=== PATIENT | male | born 1955 | race Caucasian/White ===

== ENCOUNTER 2023-08-19 06:27 | Day surgery (SDC) | payer OTHER, SELFPAY ==
[2023-08-15 13:42] VITALS: BMI 32.6
--- NOTE | 2023-08-16 09:27 | HO.ANESPROP2 ---
Documented by User: Loree Ludwig NP 08/16/23 09:27 HPI - Anesthesia Eval Consult details Narrative: 67yo M for Colonoscopy [facility] Past Medical History Medical History Tubular adenoma Surgical History Surgical History Hx of knee surgery H/O colonoscopy Social History Social History Household Members: Spouse Patient Tobacco Use Status: Never used Tobacco Use of substances other than those prescribed or required for medical reasons: No Are you DNR?: No Advance Directives: No Advance Directives Information Provided: Yes Meds Allergies Allergy/AdvReac Type Severity Reaction Status Date / Time sodium pentathol Allergy Unknown Unknown Uncoded 08/19/23 06:48 Home Medications Medication Instructions Recorded Confirmed Last Taken Type multivitamin 1 tab PO DAILY 08/15/23 08/15/23 Unknown History Exam Height,Weight and Vital Signs: Height 5 ft 9.5 in Weight 101.605 kg Assessment and Plan Assessment Anesthesia Assessment: Chart Reviewed Documented by User: Yara Jimenez MD 08/19/23 07:29 [facility] Past Medical History Medical History Tubular adenoma Family History Family history of problems with anesthesia: No Surgical History Surgical History Hx of knee surgery H/O colonoscopy History of Problems with Anesthesia: No Social History Social History Household Members: Spouse Patient Tobacco Use Status: Never used Tobacco Use of substances other than those prescribed or required for medical reasons: No Are you DNR?: No Advance Directives: No Advance Directives Information Provided: Yes Meds Allergies Allergy/AdvReac Type Severity Reaction Status Date / Time sodium pentathol Allergy Unknown Unknown Uncoded 08/19/23 06:48 Home Medications Medication Instructions Recorded Confirmed Last Taken Type multivitamin 1 tab PO DAILY 08/15/23 08/15/23 Unknown History Exam Airway Mallampati Class: II TM Dist: >3cm Neck ROM: Limited Heart: rrr Lungs: cta Assessment and Plan Assessment Anesthesia Assessment: Anesthesia Plan Discussed Final Anesthetic Review Family History of Problems with Anesthesia: No History of Problems with Anesthesia: No NPO: Yes ASA Class: I Final Preanesthetic Review: No Changes in Pt Med Stat, Meds/Allgs Chart Reviewed, Consent Obtained/Reviewed and Anes Risks/Benef Reviewed Patient Risk: Low Procedure Risk: Low Anesthetic Plan Anesthetic Plan: MAC: Disposition: Standard PACU
[2023-08-19 06:48] VITALS: BMI 33.0
[2023-08-19 07:09] VITALS: BP 146/85; PULSE 75; RESP 16; TEMP 36.6; O2SAT 96
--- NOTE | 2023-08-19 08:33 | P.BOP_ITS ---
Brief Operative Note Date of Service: 08/19/23 Pre-op diagnosis: Screening Post-op diagnosis: other (Diverticulosis) Procedure: Colonoscopy to the cecum Surgeon: Lee Braswell MD Anesthesia: MAC Was an [employer] used for this Procedure?: No Estimated blood loss (mL): 0 Pathology: none sent Condition: stable Disposition: PACU
[2023-08-19 08:35] VITALS: BP 126/75; PULSE 62; RESP 16; TEMP 36.8; O2SAT 99
[2023-08-19 08:50] VITALS: BP 147/91; PULSE 56; RESP 16; TEMP 36.8; O2SAT 98
--- NOTE | 2023-08-19 10:10 | OP_ITS ---
DATE OF SERVICE: 08/19/2023 SURGEON: Lee Braswell MD INDICATIONS: The patient presents for evaluation of colorectal cancer screening, personal history of tubular adenoma, and family history of colon cancer. Full consent was obtained from him for this, including risks of bleeding and perforation. PREOPERATIVE DIAGNOSIS: Colorectal cancer screening. POSTOPERATIVE DIAGNOSIS: PROCEDURE PERFORMED: Colonoscopy to the cecum. ESTIMATED BLOOD LOSS: COMPLICATIONS: ANESTHESIA: Monitored anesthesia care. ASSISTANTS: SPECIMENS: POSTOPERATIVE DIAGNOSES: Colorectal cancer screening, diverticulosis, and internal hemorrhoids. DESCRIPTION OF PROCEDURE: The patient was placed in the left lateral decubitus position. The digital rectal exam revealed no abnormalities. The Olympus video pediatric colonoscope was entered into the rectum and advanced to the cecum. Advancement into the cecum was somewhat difficult due to what appeared to be a lipomatous lesion with a long stalk extending into the cecum and obscuring visualization somewhat. I was able to move this out of the way with suction by basically pulling it out of the cecum. In the cecum, I was able to finally visualize the cecal pouch with appendiceal orifice and a normal-appearing ileocecal valve. There was no sign of any mass nor ulceration. The scope was then slowly withdrawn assessing all mucosal surfaces carefully. Preparation became very good throughout the colon after a lot of irrigation and suctioning. I did not visualize any sign of polyps, colitis, nor angiodysplasia. The above-mentioned lipomatous lesion was quite consistent with that of a lipoma given its gross appearance and very soft features when probed with a biopsy forceps. There was no sign of any overlying mass nor adenomatous tissue. There was a mild amount of sigmoid diverticulosis. In the rectum, scope was retroflexed visualizing internal hemorrhoids, but no other pathology. The rectal mucosa appeared normal. The scope was straightened and withdrawn from the patient. He tolerated procedure well and was returned to recovery area in stable condition. IMPRESSION: 1. Diverticulosis. 2. Internal hemorrhoids. 3. Proximal ascending colon lipoma. PLAN: Given his family history and previous history of tubular adenomas in himself, I would recommend a repeat colonoscopy in 5 years. He will otherwise see me on a p.r.n. basis. MD NATALIE De La Torre/KATHY / [phone] LONG
== END 2023-08-19 09:15 | disposition home or self-care (01) ==
PROVIDERS: PCP Family Medicine; Visit Provider Internal Medicine
PROC: 0DJD8ZZ Inspection of Lower Intestinal Tract, Via Natural or Artificial Opening Endoscopic (ICD-10-PCS; CPT 45378; principal; 2023-08-19 07:30)
DX: Z12.11 Encounter for screening for malignant neoplasm of colon (principal); Z86.010 Personal history of colon polyps; Z80.0 Family history of malignant neoplasm of digestive organs; K57.30 Diverticulosis of large intestine without perforation or abscess without bleeding; K64.8 Other hemorrhoids; D17.5 Benign lipomatous neoplasm of intra-abdominal organs
CPT/HCPCS: 45378; J2704